=== PATIENT | female | born 2000 | race Caucasian/White ===

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

== ENCOUNTER 2021-08-11 08:32 | Emergency (ER) | payer OTHER ==
[2021-08-11 09:19] VITALS: BP 119/75; PULSE 80; TEMP 98; BMI 30.6
[2021-08-11] MEDS ORDERED: ONDANSETRON 4 MG TABLET PO ONE (09:30)
[2021-08-11 10:12] LABS: EPI CELLS 7 /uL (0-25.1); HCG,QUALITATIVE URINE Positive; HYALINE CASTS 0 /uL (0-3.1); URINE APPEARANCE CLOUDY; URINE BACTERIA 146 /uL (0-1359); URINE BILIRUBIN NEGATIVE (NEGATIVE); URINE COLOR YELLOW; URINE GLUCOSE (UA) NEGATIVE (NEGATIVE); URINE KETONE NEGATIVE (NEGATIVE); URINE LEUK ESTERASE NEGATIVE (NEGATIVE); URINE NITRITE NEGATIVE (NEGATIVE); URINE PROTEIN NEGATIVE (NEGATIVE); URINE RBC 15 /uL (0-23.9); URINE WBC 4 /uL (0-25.8)
[2021-08-11] MEDS ORDERED: ONDANSETRON *ODT* 4 MG TABLET ONE (10:21)
[2021-08-11 11:17] LABS: BASO % 1.1 % (0-2.0); EOS % 6.7 % (0-4.5); HEMATOCRIT 34.2 % (32.4-45.2); HEMOGLOBIN 11.4 GM/dL (10.7-15.3); LYMPH % 24.5 % (8-40); MCH 27.3 pg (25.7-33.7); MCHC 33.2 g/dl (32.0-36.0); MEAN PLT VOLUME 7.8 fl (7.5-11.1); MONO % 5.2 % (3.8-10.2); NEUT % 62.5 % (42.8-82.8); PLATELET COUNT 319 10^3/uL (134-434); RBC 4.17 M/mm3 (3.60-5.2); RDW 15.2 % (11.6-15.6); WHITE BLOOD COUNT 8.4 K/mm3 (4.0-10.0)
[2021-08-11 11:47] LABS: BLOOD UREA NITROGEN 13.8 mg/dL (7-18); CALCIUM 8.8 mg/dL (8.5-10.1)
[2021-08-11 11:48] LABS: ALBUMIN 3.9 g/dl (3.4-5.0)
[2021-08-11 11:51] LABS: CREATININE 0.5 mg/dL (0.55-1.3)
[2021-08-11 11:52] LABS: BILIRUBIN,TOTAL 0.2 mg/dL (0.2-1)
[2021-08-11 11:53] LABS: TOT PROT 7.2 g/dl (6.4-8.2)
== END 2021-08-11 14:21 | disposition home or self-care (01) ==
LOC: JER 08:32
DX: O20.0 Threatened abortion (principal); Z3A.00 Weeks of gestation of pregnancy not specified
CPT/HCPCS: 36415; 76817-TC; 80053; 81003; 84702; 84703; 85025; 86850; 86900; 86901; 87077; 87086; 87491; 87591; 99284-25

== ENCOUNTER 2022-01-11 10:18 | Emergency (ER) | payer OTHER ==
[2022-01-11 10:22] VITALS: BP 142/78; PULSE 86; RESP 18; TEMP 97.5; BMI 28.3
[2022-01-11 12:22] LABS: EPI CELLS 8 /uL (0-25.1); HCG,QUALITATIVE URINE Positive; HYALINE CASTS 0 /uL (0-3.1); PH,URINE 5.5 (5.0-8.0); URINE APPEARANCE CLEAR; URINE BACTERIA 128 /uL (0-1359); URINE BILIRUBIN NEGATIVE (NEGATIVE); URINE COLOR YELLOW; URINE GLUCOSE (UA) NEGATIVE (NEGATIVE); URINE KETONE 4+ (NEGATIVE); URINE LEUK ESTERASE NEGATIVE (NEGATIVE); URINE NITRITE NEGATIVE (NEGATIVE); URINE PROTEIN TRACE (NEGATIVE); URINE RBC 9 /uL (0-23.9); URINE UROBILINOGEN 0.2 mg/dL (0.2-1.0); URINE WBC 13 /uL (0-25.8)
[2022-01-11] MEDS ORDERED: SODIUM CHLORIDE 0.9% 500 ML INFUS.BAG IV ONE (12:25)
[2022-01-11] MEDS ORDERED: ONDANSETRON 4 MG/2 ML VIAL IVPUSH ONE (12:25)
[2022-01-11] MEDS ORDERED: ONDANSETRON 4 MG/2 ML VIAL ONE (12:46)
[2022-01-11 13:16] LABS: BASO % 0.3 % (0-2.0); HEMATOCRIT 37.1 % (32.4-45.2); HEMOGLOBIN 11.8 GM/dL (10.7-15.3); LYMPH % 8.3 % (8-40); MCH 26.5 pg (25.7-33.7); MCHC 31.8 g/dl (32.0-36.0); MEAN CELL VOLUME 83.4 fl (80-96); MEAN PLT VOLUME 8.3 fl (7.5-11.1); MONO % 2.3 % (3.8-10.2); NEUT % 89.1 % (42.8-82.8); PLATELET COUNT 372 10^3/uL (134-434); RBC 4.45 M/mm3 (3.60-5.2); RDW 15.3 % (11.6-15.6); WHITE BLOOD COUNT 12.7 K/mm3 (4.0-10.0)
[2022-01-11 14:26] LABS: ALBUMIN 4.4 g/dl (3.4-5.0); ALK PHOS 90 U/L (45-117); ANION GAP 8 MMOL/L (8-16); BILIRUBIN,TOTAL 0.6 mg/dL (0.2-1); BLOOD UREA NITROGEN 15.7 mg/dL (7-18); CALCIUM 8.9 mg/dL (8.5-10.1); CHLORIDE 106 mmol/L (98-107); CO2 21 mmol/L (21-32); CREATININE 0.6 mg/dL (0.55-1.3); GLUCOSE,RANDOM 91 mg/dL (74-106); SGOT/AST 65 U/L (15-37); SGPT/ALT 25 U/L (13-61); SODIUM 136 mmol/L (136-145); TOT PROT 8.7 g/dl (6.4-8.2)
== END 2022-01-11 16:26 | disposition home or self-care (01) ==
LOC: JER 10:18
PROC: 3E033NZ Introduction of Analgesics, Hypnotics, Sedatives into Peripheral Vein, Percutaneous Approach (ICD-10-PCS; principal; 2022-01-11)
DX: O26.899 Other specified pregnancy related conditions, unspecified trimester (principal); R10.9 Unspecified abdominal pain
CPT/HCPCS: 36415; 76817-TC; 80053; 81003; 84132; 84702; 84703; 85025; 87086; 93005; 93010; 99284-25

== ENCOUNTER 2022-01-13 09:32 | Emergency (ER) | payer OTHER ==
[2022-01-13 10:02] VITALS: BP 123/86; PULSE 77; RESP 18; TEMP 98.1; BMI 28.3
== END 2022-01-13 15:36 | disposition home or self-care (01) ==
LOC: JER 09:32 → JERFT 09:32
DX: Z3A.01 Less than 8 weeks gestation of pregnancy (principal)
CPT/HCPCS: 36415; 76817-TC; 84702; 99284-25

== ENCOUNTER 2022-01-19 23:47 | Emergency (ER) | payer OTHER ==
[2022-01-19 23:53] VITALS: BP 127/86; PULSE 76; RESP 18; TEMP 98.2; BMI 27.3
[2022-01-20 01:24] LABS: BASO % 0.6 % (0-2.0); EOS % 3.2 % (0-4.5); HEMATOCRIT 34.5 % (32.4-45.2); HEMOGLOBIN 11.5 GM/dL (10.7-15.3); LYMPH % 42.1 % (8-40); MCH 27.8 pg (25.7-33.7); MCHC 33.2 g/dl (32.0-36.0); MEAN CELL VOLUME 83.7 fl (80-96); MEAN PLT VOLUME 8.1 fl (7.5-11.1); MONO % 5.8 % (3.8-10.2); NEUT % 48.3 % (42.8-82.8); PLATELET COUNT 347 10^3/uL (134-434); RBC 4.12 M/mm3 (3.60-5.2); RDW 15.7 % (11.6-15.6); WHITE BLOOD COUNT 7.5 K/mm3 (4.0-10.0)
[2022-01-20 01:34] LABS: EPI CELLS 16 /uL (0-25.1); HYALINE CASTS 1 /uL (0-3.1); URINE APPEARANCE CLEAR; URINE BACTERIA 134 /uL (0-1359); URINE BILIRUBIN NEGATIVE (NEGATIVE); URINE COLOR YELLOW; URINE GLUCOSE (UA) NEGATIVE (NEGATIVE); URINE KETONE NEGATIVE (NEGATIVE); URINE LEUK ESTERASE TRACE (NEGATIVE); URINE NITRITE NEGATIVE (NEGATIVE); URINE PROTEIN NEGATIVE (NEGATIVE); URINE RBC 502 /uL (0-23.9); URINE UROBILINOGEN 0.2 mg/dL (0.2-1.0); URINE WBC 52 /uL (0-25.8)
[2022-01-20 01:47] LABS: CALCIUM 8.7 mg/dL (8.5-10.1)
[2022-01-20 01:48] LABS: ALBUMIN 4.2 g/dl (3.4-5.0); BLOOD UREA NITROGEN 7.5 mg/dL (7-18)
[2022-01-20 01:51] LABS: CREATININE 0.5 mg/dL (0.55-1.3)
[2022-01-20 01:52] LABS: BILIRUBIN,TOTAL 0.3 mg/dL (0.2-1)
[2022-01-20 01:53] LABS: TOT PROT 7.7 g/dl (6.4-8.2)
== END 2022-01-20 04:00 | disposition home or self-care (01) ==
LOC: JER 23:47
DX: O26.851 Spotting complicating pregnancy, first trimester (principal); Z3A.01 Less than 8 weeks gestation of pregnancy
CPT/HCPCS: 36415; 76817-TC; 80053; 81003; 82010; 84702; 85025; 86850; 86900; 86901; 87086; 99284-25

== ENCOUNTER 2022-12-12 12:36 | Emergency (ER) | payer OTHER ==
[2022-12-12 12:43] VITALS: BMI 30.8
[2022-12-12 14:36] LABS: BASO % 0.4 % (0-2.0); HEMATOCRIT 32.2 % (32.4-45.2); HEMOGLOBIN 10.6 GM/dL (10.7-15.3); LYMPH % 20.8 % (8-40); MCH 27.6 pg (25.7-33.7); MEAN CELL VOLUME 83.6 fl (80-96); MEAN PLT VOLUME 7.8 fl (7.5-11.1); MONO % 4.1 % (3.8-10.2); NEUT % 73.7 % (42.8-82.8); PLATELET COUNT 306 10^3/uL (134-434); RBC 3.86 M/mm3 (3.60-5.2); RDW 15.5 % (11.6-15.6)
[2022-12-12 14:42] LABS: POTASSIUM 3.7 mmol/L (3.5-5.1)
[2022-12-12 14:44] LABS: ALBUMIN 3.2 g/dl (3.4-5.0); BLOOD UREA NITROGEN 5.8 mg/dL (7-18); CALCIUM 8.6 mg/dL (8.5-10.1)
[2022-12-12 14:47] LABS: CREATININE 0.4 mg/dL (0.55-1.3)
[2022-12-12 14:49] LABS: BILIRUBIN,TOTAL 0.2 mg/dL (0.2-1)
[2022-12-12 14:59] LABS: INR 1.03 (0.83-1.09)
[2022-12-12 18:33] VITALS: BP 96/69; RESP 20; TEMP 98.9
[2022-12-12 18:37] VITALS: PULSE 78
== END 2022-12-12 18:37 | disposition short-term general hospital (02) ==
LOC: JER 12:36
DX: O34.32 Maternal care for cervical incompetence, second trimester (principal); O03.9 Complete or unspecified spontaneous abortion without complication; Z3A.18 18 weeks gestation of pregnancy; Z20.822 Contact with and (suspected) exposure to COVID-19
CPT/HCPCS: 36415; 76817-TC; 80053; 85025; 85610; 85730; 86850; 86900; 86901; 87635; 93005; 93010; 99285-25

== ENCOUNTER 2024-06-15 06:37 | Inpatient (IN) | payer OTHER ==
[2024-06-15 06:52] VITALS: TEMP 97.9
[2024-06-15] MEDS: ELECTROLYTE-148 SOLN 1,000 ML IV SCH (07:00)
[2024-06-15 07:05] VITALS: BMI 34.4
[2024-06-15 08:42] VITALS: BP 114/85; PULSE 111; RESP 18
== END 2024-06-15 08:14 | disposition short-term general hospital (02) | DRG 566 ==
LOC: JDEL 06:37 → JLDR 06:45
PROVIDERS: ADMIT Obstetrics & Gynecology; ATTEND Obstetrics & Gynecology
DX: O99.413 Diseases of the circulatory system complicating pregnancy, third trimester (principal); Z3A.40 40 weeks gestation of pregnancy